=== PATIENT | female | born 2000 | race Caucasian/White ===

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

== ENCOUNTER → 2021-06-05 | Outpatient (CLI) | payer BC ==
[2021-06-05 12:10] LABS: ALKALINE PHOSPHATASE 51 U/L (40-136); BILIRUBIN,TOTAL 0.2 MG/DL (0.1-1.0); BUN/CREATININE RATIO 17; CALCIUM 9.9 MG/DL (8.5-10.1); CARBON DIOXIDE 24 MMOL/L (21-32); CHLORIDE 105 MMOL/L (98-107); CREATININE SERUM 0.81 MG/DL (0.60-1.30); GFR ESTIMATED 90; GLUCOSE 94 MG/DL (70-105); POTASSIUM 4.6 MMOL/L (3.6-5.0); SODIUM 140 MMOL/L (135-145)
[2021-06-05 12:11] LABS: ALANINE AMINOTRANSFERASE 9 U/L (0-55); ALBUMIN 4.9 GM/DL (3.2-4.5); TOTAL PROTEIN 7.2 GM/DL (6.4-8.2)
[2021-06-05 12:26] LABS: HEMATOCRIT 40 % (35-52); HEMOGLOBIN 13.5 g/dL (11.5-16.0); MEAN CORPUSCULAR HEMOGLOBIN 30 pg (25-34); MEAN CORPUSCULAR HGB CONC 34 g/dL (32-36); MEAN CORPUSCULAR VOLUME 90 fL (80-99); WHITE BLOOD COUNT 4.2 10^3/uL (4.3-11.0)
[2021-06-05 12:27] LABS: MEAN PLATELET VOLUME 11.1 fL (9.0-12.2); PLATELET COUNT 211 10^3/uL (130-400)
[2021-06-05 12:28] LABS: LYMPHOCYTES % (AUTO) 43 % (12-44); MONOCYTES % (AUTO) 8 % (0-12); NEUTROPHILS % (AUTO) 47 % (42-75)
[2021-06-05 12:29] LABS: ATYPICAL LYMPHOCYTES 2 %; BAND NEUTROPHILS 1 %; BASOPHILS % (AUTO) 1 % (0-10); BASOPHILS % (MANUAL) 1 %; EOSINOPHILS % (AUTO) 1 % (0-10); EOSINOPHILS % (MANUAL) 1 %; LYMPHOCYTES # (AUTO) 1.8 X 10^3 (1.0-4.0); LYMPHOCYTES % (MANUAL) 44 %; MONOCYTES # (AUTO) 0.3 X 10^3 (0.0-1.0); MONOCYTES % (MANUAL) 7 %; NEUTROPHILS % (MANUAL) 44 %
== END ==
LOC: LAB FS 10:56
PROVIDERS: ATTEND Registered Nurse Emergency
DX: R58 Hemorrhage, not elsewhere classified (principal); R61 Generalized hyperhidrosis
CPT/HCPCS: 36415; 80053; 84443; 85007; 85027; 86141

== ENCOUNTER → 2022-03-26 | Outpatient (CLI) | payer BC | LOC: LABNPT 14:54 | PROVIDERS: ATTEND Family Medicine | DX: U07.1 COVID-19 (principal) | CPT/HCPCS: 87636 ==

== ENCOUNTER → 2022-03-26 | Outpatient (CLI) | payer BC | LOC: LABNPT 14:52 | PROVIDERS: ATTEND Family Medicine | DX: R07.0 Pain in throat (principal); R05.1 Acute cough | CPT/HCPCS: 87070 ==